=== PATIENT | female | born 1975 | race Caucasian/White ===

== ENCOUNTER 2022-06-13 04:53 | Emergency (ER) | payer MEDICAID ==
[~2022-06-13] VITALS: Ht 170.2 cm; Wt 80.0 kg
[2022-06-13 08:42] LABS: BASOPHILS % 0.8 % (0.0-2.0); EOSINOPHILS % 1.6 % (0.0-5.0); HEMATOCRIT. 26.7 % (36.0-48.0); LYMPHOCYTES % 29.1 % (20.0-50.0); MEAN CORPUSCULAR HEMOGLOBIN 18.5 pg (28.0-32.0); MEAN CORPUSCULAR VOLUME 61.5 fL (81.0-99.0); MEAN PLATELET VOLUME 6.4 fl (7.4-10.4); MONOCYTES % 6.6 % (2.0-8.0); NEUTROPHILS % 61.9 % (40.0-76.0); PLATELET 508 x1000/uL (130-400); RED BLOOD CELL COUNT 4.33 mill/uL (4.2-5.4); RED CELL DISTRIBUTION WIDTH 21.3 % (11.6-14.6)
[2022-06-13 08:48] LABS: CHLORIDE 107 mEq/L (98-107)
[2022-06-13 09:17] LABS: PLATELET ESTIMATE INCREASED
[2022-06-13 10:14] VITALS: BP 118/75
[2022-06-13] MEDS ORDERED: IBUPROFEN 600MG TABLET PO ONE (12:00)
== END 2022-06-13 12:47 | disposition home or self-care (01) ==
LOC: ER 04:53
DX: R07.9 Chest pain, unspecified (principal); E78.00 Pure hypercholesterolemia, unspecified
CPT/HCPCS: 36415; 71045; 80053; 83690; 84484; 85025; 93005; 99284; Z7610